=== PATIENT | female | born 1945 ===

== ENCOUNTER 2018-03-29 12:05 | Inpatient (IN) | payer OTHER ==
[~2018-03-29] VITALS: Ht 170.2 cm; Wt 78.9 kg
[2018-03-29] MEDS ORDERED: NORVASC5 MG PO (12:28)
[2018-03-29] MEDS ORDERED: HYZAAR 100-251 EACH PO (12:28)
[2018-03-29] MEDS ORDERED: TOPROL XL50 M1 PO (12:29)
[2018-03-29] MEDS ORDERED: ASA81 MG PO (12:29)
[2018-03-29] MEDS ORDERED: ZANTAC150 MG PO (12:30)
[2018-03-29] MEDS ORDERED: LIPITOR20 MG PO (12:30)
[2018-03-29] MEDS ORDERED: CLONAZEPAM0.5 MG PO (12:31)
[2018-04-07] MEDS ORDERED: DOCUSATE SODIU100 MG PO (09:57)
[2018-04-07] MEDS ORDERED: CLONAZEPAM1 MG PO (09:58)
[2018-04-07] MEDS ORDERED: PERCOCET 5-3251 EACH PO (09:58)
== END 2018-04-07 18:05 | DRG 454 ==
LOC: O/R 04-06 05:40 → PED 04-06 05:40 → O/R 04-06 07:00 → PED 04-06 10:37 → O/R 04-06 12:04 → PED 04-07 18:05
PROVIDERS: Orthopaedic Surgery Orthopaedic Surgery of the Spine
PROC: 0RG2071 Fusion of 2 or more Cervical Vertebral Joints with Autologous Tissue Substitute, Posterior Approach, Posterior Column, Open Approach (ICD-10-PCS; 2018-04-06)
PROC: 0RT30ZZ Resection of Cervical Vertebral Disc, Open Approach (ICD-10-PCS; 2018-04-06)
PROC: 07DS3ZZ Extraction of Vertebral Bone Marrow, Percutaneous Approach (ICD-10-PCS; 2018-04-06)
PROC: 0RG20A0 Fusion of 2 or more Cervical Vertebral Joints with Interbody Fusion Device, Anterior Approach, Anterior Column, Open Approach (ICD-10-PCS; principal; 2018-04-06 07:00)
DX: M50.01 Cervical disc disorder with myelopathy, high cervical region (principal); M47.12 Other spondylosis with myelopathy, cervical region; I10 Essential (primary) hypertension

== ENCOUNTER 2021-09-24 09:29 | Outpatient (CLI) | payer OTHER ==
[~2021-09-24 09:29] MED LIST: ASA81 MG PO; CLONAZEPAM0.5 MG PO; CLONAZEPAM1 MG PO; DOCUSATE SODIU100 MG PO; HYZAAR 100-251 EACH PO; LIPITOR20 MG PO; NORVASC5 MG PO; PERCOCET 5-3251 EACH PO; TOPROL XL50 M1 PO; ZANTAC150 MG PO
== END 2021-09-24 09:34 | disposition home or self-care (01) ==
LOC: RX STUDY 09:29
DX: K44.9 Diaphragmatic hernia without obstruction or gangrene (principal); K21.9 Gastro-esophageal reflux disease without esophagitis; K57.30 Diverticulosis of large intestine without perforation or abscess without bleeding; R10.30 Lower abdominal pain, unspecified; Z86.010 Personal history of colon polyps; R93.3 Abnormal findings on diagnostic imaging of other parts of digestive tract; K76.0 Fatty (change of) liver, not elsewhere classified; Q61.02 Congenital multiple renal cysts; K31.89 Other diseases of stomach and duodenum

== ENCOUNTER 2023-11-23 08:52 | Outpatient (CLI) | payer OTHER | END 2023-11-23 08:59 | disposition home or self-care (01) | LOC: TOM 08:52 | PROVIDERS: ATTEND Internal Medicine Gastroenterology | DX: K62.89 Other specified diseases of anus and rectum (principal); Z86.010 Personal history of colon polyps; K62.5 Hemorrhage of anus and rectum; R10.30 Lower abdominal pain, unspecified; K59.09 Other constipation; K63.89 Other specified diseases of intestine; R10.9 Unspecified abdominal pain ==